=== PATIENT | male | born 1955 | race Asian ===

== ENCOUNTER 2017-05-10 19:17 | Emergency (ER) | payer MEDICAID ==
[2017-05-10 21:49] LABS: BASOPHILS % (AUTO) 0.4 %; EOSINOPHILS # (AUTO) 0.1 10^3/uL (0.0-0.7); EOSINOPHILS % (AUTO) 1.7 %; HGB - HEMOGLOBIN 15.3 g/dL (14.0-18.0); LYMPHOCYTES # (AUTO) 1.9 10^3/uL (1.5-3.5); LYMPHOCYTES % (AUTO) 24.6 %; MEAN CORPUSCULAR HEMOGLOBIN 30.3 pg (27.0-31.0); MEAN CORPUSCULAR HGB CONC 33.3 g/dL (32.0-36.0); MEAN CORPUSCULAR VOLUME 90.8 fL (80.0-94.0); MEAN PLATELET VOLUME 8.7 fL (7.4-11.4); MONOCYTES # (AUTO) 0.7 10^3/uL (0.0-1.0); MONOCYTES % (AUTO) 8.6 %; NEUTROPHILS # (AUTO) 5.1 10^3/uL (1.5-6.6); NEUTROPHILS % (AUTO) 64.7 %; NUCLEATED RED BLOOD CELLS AUTO 0.1 /100WBC; RED BLOOD COUNT 5.07 10^6/uL (4.70-6.10); RED CELL DISTRIBUTION WIDTH 12.9 % (12.0-15.0); UNCORRECTED WHITE BLOOD COUNT 7.8 x10^3/uL; WHITE BLOOD COUNT 7.8 x10^3/uL (4.8-10.8)
--- NOTE | 2017-05-10 21:51 | CT Preliminary Report ---
Exam: CT Head W/O IMPRESSION: Generalized age-related cortical atrophic changes without evidence of acute intracranial abnormality. [facility] SITE ID: [id number]
[2017-05-10] MEDS ORDERED: diphenhydrAMINE 25 MG CAPSULE PO STA (21:55)
[2017-05-10] MEDS ORDERED: KETOROLAC 60 MG/2 ML VIAL IM STA (21:55)
[2017-05-10] MEDS ORDERED: DEXAMETHASONE 10 MG/ML VIAL PO STA (21:55)
--- NOTE | 2017-05-10 21:55 | CT Report ---
EXAM: CT HEAD EXAM DATE: 05/10/2017 09:35 PM. CLINICAL HISTORY: Intermittent sharp left posterior headaches for the last 4 days. Episode of facial, left-sided head and numbness and decreased vision earlier tonight. COMPARISON: None. TECHNIQUE: Multiaxial CT images were obtained from the foramen magnum to the vertex. IV contrast: Non e. Reformats: Coronal. In accordance with CT protocol optimization, one or more of the following dose reduction techniques w ere utilized for this exam: automated exposure control, adjustment of mA and/or KV based on patient s ize, or use of iterative reconstructive technique. FINDINGS: Parenchyma: No intraparenchymal hemorrhage. No evidence of mass, midline shift, or CT findings of acu te infarction. Batres-white differentiation is distinct. Extraaxial Spaces: Mild atrophy, normal for age. No subdural or epidural collections identified. Ventricles: The ventricles and cortical sulci are enlarged, consistent with age-related tissue loss. Sinuses: Imaged paranasal sinuses, orbits, and mastoids show no significant abnormality. Bones: No evidence of fracture or calvarial defect. Other: Diffuse chronic microangiopathic white matter changes are evident. IMPRESSION: Generalized age-related cortical atrophic changes without evidence of acute intracranial abnormality. [facility] Referring Provider Line: [phone] SITE ID: [id number]
[2017-05-10] MEDS ORDERED: diphenhydrAMINE 25 MG CAPSULE PO ONE (22:03)
[2017-05-10] MEDS ORDERED: KETOROLAC 60 MG/2 ML VIAL ONE (22:03)
[2017-05-10] MEDS ORDERED: DEXAMETHASONE 10 MG/ML VIAL ONE (22:03)
[2017-05-10 22:05] LABS: ALBUMIN/GLOBULIN RATIO 1.3 (1.0-2.2); BILIRUBIN,TOTAL 0.7 mg/dL (0.2-1.0); BUN - BLOOD UREA NITROGEN 16 mg/dL (6-20); CARBON DIOXIDE - CO2 25 mmol/L (21-32); CHLORIDE 108 mmol/L (101-111); CREATININE 0.9 mg/dL (0.6-1.2); GFR - MDRD 86 (>89); GLUCOSE 104 mg/dL (70-100); LIPASE 43 U/L (22-51); POTASSIUM 3.9 mmol/L (3.5-5.0); SODIUM 140 mmol/L (135-145); TOTAL PROTEIN 6.8 g/dL (6.7-8.2)
--- NOTE | 2017-05-10 22:17 | ED Physician Documentation ---
PD HPI HEADACHE - Stated complaint Stated Complaint: HEAD PX - Chief complaint Chief Complaint: General - History obtained from History obtained from: Patient - History of Present Illness Timing - onset: How many days ago (4) Timing - onset during: Rest Timing - details: Gradual onset, Intermittant, Waxing and waning Pain level max: 4 Pain level now: 3 Worst headache ever?: Worst headache ever? (no) Location: Left Quality: Aching, Stabbing Associated symptoms: Eye pain. No: Fever, Stiff neck, Nausea, Vomiting, Weakness, Numbness, Syncope, Seizure Improved by: Nothing Contributing factors: No: Anticoagulated, Possible carbon monoxide, Hypertension Similar symptoms before: Has not had sx before Recently seen: Not recently seen - Additional information Additional information: Patient is a 61 year old male with a history of anxiety who is presenting to the emergency department for headache. patient states that his pain has been going on for the last 4 days. patient states that it comes and goes. He states that it feels painful and then feels numb in that area. patient denies any aggravating or alleviating factors. Patient denies any nausea, vomiting, fever, chills or change in vision. Review of Systems Constitutional: denies: Fever, Chills Eyes: reports: Photophobia. denies: Loss of vision, Decreased vision, Discharge Ears: denies: Ear pain, Drainage/discharge Nose: denies: Rhinorrhea / runny nose, Congestion, Epistaxis Throat: denies: Sore throat Respiratory: denies: Dyspnea, Cough, Wheezing GI: denies: Nausea, Vomiting : denies: Dysuria, Frequency Skin: denies: Rash, Lesions Musculoskeletal: denies: Neck pain, Back pain, Extremity pain, Joint pain Neurologic: reports: Numbness, Headache. denies: Generalized weakness, Focal weakness, Difficulty speaking, Near syncope, Syncope, Confused, Altered mental status, Head injury, LOC Psychiatric: reports: Anxiety Immunocompromised: denies: Immunocompromised PD PAST MEDICAL HISTORY - Past Medical History Past Medical History: Yes Cardiovascular: High cholesterol - Past Surgical History Past Surgical History: No - Present Medications Home Medications: Ambulatory Orders Medication Instructions Recorded Confirmed Simvastatin 20 mg PO DAILY 04/05/16 05/10/17 Citalopram [CeleXA] 20 mg PO DAILY 05/10/17 05/10/17 - Allergies Allergies/Adverse Reactions: Allergies Allergy/AdvReac Type Severity Reaction Status Date / Time No Known Drug Allergies Allergy Verified 04/05/16 19:11 - Social History Does the pt smoke?: No Smoking Status: Never smoker PD ED PE NORMAL - Vitals Vital signs reviewed: Yes - General General: Alert and oriented X 3, No acute distress, Well developed/nourished - HEENT HEENT: Atraumatic, PERRL, Moist mucous membranes, Pharynx benign - Neck Neck: Supple, no meningeal sign - Cardiac Cardiac: RRR, No murmur - Respiratory Respiratory: No respiratory distress, Clear bilaterally - Abdomen Abdomen: Soft, Non tender, Non distended - Derm Derm: Normal color, Warm and dry, No rash - Extremities Extremities: No deformity, No tenderness to palpate, No edema - Neuro Neuro: Alert and oriented X 3, 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, No motor deficit, No sensory deficit, Normal speech - Psych Psych: Normal mood PD ED PE EXPANDED - Psych Psych: Anxious Results - Vitals Vitals: Vital Signs - 24 hr 05/10/17 19:36 Temperature 36.4 C L Heart Rate 86 Respiratory 14 Rate Blood Pressure 150/93 H O2 Saturation 96 Oxygen O2 Source Room air - Labs Labs: Laboratory Tests 05/10/17 05/10/17 05/10/17 21:30 21:30 21:30 WBC 7.8 RBC 5.07 Hgb 15.3 Hct 46.0 MCV 90.8 MCH 30.3 MCHC 33.3 RDW 12.9 Plt Count 194 MPV 8.7 Neut # 5.1 Lymph # 1.9 [place] # 0.7 Eos # 0.1 Baso # 0.0 Absolute Nucleated RBC 0.00 Nucleated RBCs 0.1 ESR 2 Sodium 140 Potassium 3.9 Chloride 108 Carbon Dioxide 25 Anion Gap 7.0 BUN 16 Creatinine 0.9 Estimated GFR (MDRD) 86 L Glucose 104 H Calcium 9.0 Total Bilirubin 0.7 AST 24 ALT 26 Alkaline Phosphatase 48 Total Protein 6.8 Albumin 3.9 Globulin 2.9 Albumin/Globulin Ratio 1.3 Lipase 43 - Rads (name of study) ct head Radiology: Final report received, See rad report (no acute intracranial pathology) PD MEDICAL DECISION MAKING - ED course Complexity details: reviewed old records, reviewed results, re-evaluated patient , considered differential, d/w patient ED course: Patient was seen and examined at bedside. labs were drawn and imaging was ordered due to the neurological complaints. Patient's labs and imaging was within normal limits. patient had no neurological deficits. patient was treated with toradol, decadron and benadryl. patient required no further work up and was stable for discharge with outpatient follow up. Departure - Departure Disposition: Home, Self Care Clinical Impression: Headache Condition: Good Instructions: ED Cephalgia Unspecified Follow-Up: primary,care provider [Other] - Within 3 Days Comments: Your diagnostics today were within normal limits. there were no acute abnormalities on you ct or blood work. there are over 100 different types of headaches and it is hard to say what is causing it exactly. You should try starting with motrin and tylenol and staying well hydrated. You should follow up with your doctor on saturday to schedule a follow up appointment. You can return to the emergency department at any time for new, worsening or uncontrollable symptoms.
[2017-05-10 22:38] VITALS: BP 149/100
== END 2017-05-10 22:36 | disposition home or self-care (01) ==
LOC: ED 19:17
DX: R51 Headache (principal); E78.00 Pure hypercholesterolemia, unspecified
CPT/HCPCS: 36415; 70450; 80053; 83690; 85025; 85651; 86140; 96372; 99282; 99284; A9270

== ENCOUNTER 2018-05-30 09:29 | Outpatient (CLI) | payer MEDICAID | END 2018-05-30 23:59 | disposition home or self-care (01) | LOC: RT 09:29 | PROVIDERS: ATTEND Internal Medicine Gastroenterology | DX: E78.5 Hyperlipidemia, unspecified (principal) | CPT/HCPCS: 93005 ==

== ENCOUNTER 2018-06-05 06:11 | Day surgery (SDC) | payer MEDICAID ==
[2018-06-05] MEDS ORDERED: LACTATED RINGERS 1,000 ML IV ONE (06:34)
--- NOTE | 2018-06-05 07:44 | ANESTHESIA ---
Pre-Anesthesia VS, & Labs - Diagnosis Family history of colon cancer - Procedure Colonoscopy Vital Signs: Temp Pulse Resp BP Pulse Ox 36.1 C L 86 16 137/103 H 96 06/05/18 06:35 06/05/18 06:35 06/05/18 06:35 06/05/18 06:35 06/05/18 06:35 Height 5 ft 7 in Weight (kg) 93.4 kg Body Mass Index 31.3 - NPO >8 hours Last Fluid Intake: h20 at 0500 Home Medications and Allergies Home Medications: Ambulatory Orders Medication Instructions Recorded Confirmed Simvastatin 20 mg PO DAILY 04/05/16 06/05/18 Amoxicillin 500 mg PO TID 06/05/18 06/05/18 Oxycodone HCl/Acetaminophen 1 each PO TID 06/05/18 06/05/18 [Oxycodone-Acetaminophen 5-325] Simvastatin 20 mg PO DAILY 04/05/16 Amoxicillin 500 mg PO TID 06/05/18 Oxycodone HCl/Acetaminophen [Oxycodone-Acetaminophen 5-325] 1 each PO TID 06/05/18 Allergies/Adverse Reactions: Allergies Allergy/AdvReac Type Severity Reaction Status Date / Time No Known Drug Allergies Allergy Verified 04/05/16 19:11 Anes History & Medical History - Anesthetic History Anesthesia Complications: reports: No previous complications - Medical History Cardiovascular: reports: High cholesterol Pulmonary: reports: Sleep apnea, CPAP use Gastrointestinal: reports: None Urinary: reports: None Neuro: reports: None Musculoskeletal: reports: None Endocrine/Autoimmune: reports: None Skin: reports: None Smoking Status: Former smoker (quit 13 years ago) Psychosocial: reports: No issues indicated - Surgical History General: Colonoscopy Exam General: Alert, Oriented x3, Cooperative, No acute distress Dental: WNL Mouth Openin Fingerbreadth Mallampati classification: II Thyromental Distance: 4-6 cm Respiratory: Lungs clear, Normal breath sounds, No respiratory distress, No accessory muscle use Cardiovascular: Regular rate, Normal S1, Normal S2, No murmurs Mental/Cognitive Status: Alert/Oriented X3, Normal for patient Cognitive Status: Within normal limits Plan Anesthesia Type: MAC Consent for Procedure(s) Verified and Reviewed: Yes Code Status: Attempt Resuscitation ASA classification: 2-Mild systemic disease Is this case an emergency?: No
[2018-06-05] MEDS ORDERED: PROPOFOL 200 MG/20 ML VIAL IVP ONE (08:44)
[2018-06-05] MEDS ORDERED: LIDOCAINE-MPF 2% 5 ML VIAL IM ONE (08:44)
[2018-06-05 09:38] VITALS: BP 126/84
== END 2018-06-05 06:12 | disposition home or self-care (01) ==
LOC: SDS 06:11
PROVIDERS: ATTEND Internal Medicine Gastroenterology
PROC: 0DBH8ZZ Excision of Cecum, Via Natural or Artificial Opening Endoscopic (ICD-10-PCS; 2018-06-05)
PROC: 0DBK8ZZ Excision of Ascending Colon, Via Natural or Artificial Opening Endoscopic (ICD-10-PCS; principal; 2018-06-05 08:15)
DX: Z12.11 Encounter for screening for malignant neoplasm of colon (principal); D12.2 Benign neoplasm of ascending colon; D12.0 Benign neoplasm of cecum; K57.30 Diverticulosis of large intestine without perforation or abscess without bleeding; G47.30 Sleep apnea, unspecified; E78.5 Hyperlipidemia, unspecified; Z87.891 Personal history of nicotine dependence; Z80.0 Family history of malignant neoplasm of digestive organs; E66.9 Obesity, unspecified; Z68.32 Body mass index [BMI] 32.0-32.9, adult
CPT/HCPCS: 45380; J7120

== ENCOUNTER 2018-06-06 20:04 | Emergency (ER) | payer MEDICAID ==
--- NOTE | 2018-06-06 21:41 | ED Physician Documentation ---
PD HPI UPPER EXT INJURY - Stated complaint Stated Complaint: L INDEX FINGER LAC - Chief complaint Chief Complaint: Trauma Ext - History obtained from History obtained from: Patient - History of Present Illness Location: Left, Finger (index finger tip, not at nailbed. 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.) Type of injury: Laceration Timing - onset: Today Timing - details: Abrupt onset, Still present Improved by: Rest Worsened by: Moving, Palpating Associated symptoms: No: Weakness, Numbness Similar symptoms before: Has not had sx before Recently seen: Not recently seen Review of Systems Skin: reports: Laceration (s) Neurologic: denies: Focal weakness PD PAST MEDICAL HISTORY - Past Medical History Past Medical History: Yes Cardiovascular: High cholesterol Respiratory: None Neuro: None Endocrine/Autoimmune: None GI: None : None HEENT: None Psych: None Musculoskeletal: None Derm: None - Past Surgical History Past Surgical History: No - Present Medications Home Medications: Ambulatory Orders Medication Instructions Recorded Confirmed Simvastatin 20 mg PO DAILY 04/05/16 06/05/18 Amoxicillin 500 mg PO TID 06/05/18 06/05/18 Oxycodone HCl/Acetaminophen 1 each PO TID 06/05/18 06/05/18 [Oxycodone-Acetaminophen 5-325] - Allergies Allergies/Adverse Reactions: Allergies Allergy/AdvReac Type Severity Reaction Status Date / Time No Known Drug Allergies Allergy Verified 06/06/18 20:11 - Social History Does the pt smoke?: No Smoking Status: Never smoker Does the pt drink ETOH?: No Does the pt have substance abuse?: No - Immunizations Immunizations are current?: No - POLST Patient has POLST: No PD ED PE NORMAL - Vitals Vital signs reviewed: Yes - General General: Alert and oriented X 3, No acute distress, Well developed/nourished - Derm Derm: Normal color, Warm and dry - Extremities Extremities: Other (left index finger tip, not at nailbed, but just distal to it, with flap lac, and attached small side of it is proximal radial side. Color of flap is slightly dark and not capillary refill briskly, but is bleeding from the underside base. No bone exposure. Nailbed not disrupted. ) - Neuro Neuro: No motor deficit, Other (less sensation at just the flap. ) Results - Vitals Vitals: Oxygen O2 Source Room air Procedures - Laceration (location) left index finger tip Length in cm: 1.5 Wound type: Flap, Into subcut fat (the center part of it is full thickness, and there appears a thin area still connected at the proximal aspect, with dusky but still some blood flow appearance into the flp.), Clean Neurovascular status: Motor intact, Vascular intact (diminshed due to small flap). No: Sensory intact (around it is good. The flap itself has less sensation.) Tendon involvement: No: Tendon Injury Anesthesia: Lidocaine 1% (local) Wound Preparation: Hibiclens, Irrigated copiously NS Skin layer closure: Nylon, Interrupted, Size #-0 - enter number (4) Other: Patient tolerated well, No complications, Neurovascular intact, Dressing applied, Tetanus UTD Complexity: Simple PD MEDICAL DECISION MAKING - ED course Complexity details: considered differential (index finger tip flap lac. Talked with him about smaller pieces sometimes are too thin or such. He would like to try suture closure. ), d/w patient - Sepsis Event Vital Signs: Oxygen O2 Source Room air Departure - Departure Disposition: 01 Home, Self Care Clinical Impression: Finger laceration Qualifiers: Encounter type: initial encounter Finger: index finger Damage to nail status: without damage Foreign body presence: without foreign body Laterality: left Qualified Code(s): S61.211A - Laceration without foreign body of left index finger without damage to nail, initial encounter Condition: Stable Record reviewed to determine appropriate education?: Yes Instructions: ED Laceration Hand Comments: It is okay to wash and shower. Clean off the wound twice a day with soap and water, or peroxide and water. Apply some antibiotic ointment to it to keep it moist. Also to watch for signs of infection such as purulence, redness or increasing pain. Return to your primary care or the ER at the specified time for suture removal. Suture removal 10 days. Tylenol or ibuprofen if needed for pains. This is a thin flap which may not heal back in place. Stitching it right now is the best opportunity for her to heal. The tissue underneath will be healing anyway and if the top piece doesn't heal in, the new tissue underneath should still cover most of the area. Discharge Date/Time: 06/06/18 22:58
[2018-06-06] MEDS ORDERED: LIDOCAINE 1% 2 ML VIAL SUBQ STA (21:57)
[2018-06-06] MEDS ORDERED: ACETAMINOPHEN 325 MG TABLET PO STA (22:32)
[2018-06-06] MEDS ORDERED: IBUPROFEN 600 MG TABLET PO STA (22:32)
[2018-06-06 22:54] VITALS: BP 160/90
== END 2018-06-06 22:58 | disposition home or self-care (01) ==
LOC: ED 20:04
DX: S61.211A Laceration without foreign body of left index finger without damage to nail, initial encounter (principal); W27.8XXA Contact with other nonpowered hand tool, initial encounter
CPT/HCPCS: 12001; 99282; 99283; A9270

== ENCOUNTER 2018-07-21 09:21 | Outpatient (CLI) | payer MEDICAID | END 2018-07-21 09:22 | disposition home or self-care (01) | LOC: SC 09:21 | PROVIDERS: ATTEND Internal Medicine Pulmonary Disease | DX: G47.33 Obstructive sleep apnea (adult) (pediatric) (principal) | CPT/HCPCS: 99212; 99213 ==

== ENCOUNTER 2019-05-12 13:19 | Outpatient (CLI) | payer MEDICAID ==
--- NOTE | 2019-05-12 20:50 | SLEEP CARE CONSULTATION ---
Information from patient questionnaire entered by hSanell Bucio. I have reviewed and concur with the information entered by Shanell Bucio. This document represents the service I personally performed and the decisions made by me, David Molina MD, [facility]. History of Present Illness Previous diagnosis: Very Severe, Obstructive Sleep Apnea-Hypopnea Syndrome AHI: 95.5 Reason for CPAP/BiPAP follow up: other (10 month FOLLOWUP ISSUES WITH [facility]) Equipment type: CPAP Equipment obtained from: [employer] Prior sleep studies: Yes Year and Where: 2007 [facility] additional information: HPI: Mr. Canchola returned today for follow up of nasal CPAP therapy. He was diagnosed to have very severe obstructive sleep apnea-hypopnea syndrome. The patient wears a Respironics DreamWear nasal cushion mask. He reports using the device nightly and all through the night. The compliance report is not available because he did not bring the memory card. He complained of no particular problem with the device such as soreness on the face, dry nose, epistaxis, nasal congestion or headache. He thinks that the pressure of 9 - 15 cmH2O is comfortable (raised from 8 13 cmH2O for elevated residual AHI of 8). On the CPAP therapy he notices improvement in his sleep quality, and that he wakes up feeling fresher in the morning and more awake/alert during the day. Subjective Initial [place] Sleepiness Scale score: 19 Current Mcgrew Sleepiness Scale score: 0 Allergies and Home Medications Drug allergies reviewed: Yes Home medication list reviewed: Yes Review of Systems Review of systems same as previous: Yes Physical Exam Weight (kg): 216 lb Impression and Plan IMPRESSION: 1. Obstructive Sleep Apnea-Hypopnea Syndrome, very severe, with the patient doing well on nasal CPAP therapy. He has excellent compliance and significant clinical improvement. The effectiveness is unknown because he did not bring the memory card. Because the CPAP is now older than the useful life of 5 years, I will order the patient a new one and make it an autoCPAP set between 10 and 15 cmH2O. PLAN: 1. Prescription made for an autoCPAP, heated humidifier, and related supplies. He will get the device from a different durable medical supplier because he is unhappy with [facility]. 2. Try to lose weight 3. Try ResMed N30i mask. 4. Return for follow up after one month on the new machine. I spent 100% of this 15 minute visit face to face with the patient with greater than 50% of this was spent time counseling the patient and coordination of care.
== END 2019-05-12 13:20 | disposition home or self-care (01) ==
LOC: SC 13:19
PROVIDERS: ATTEND Internal Medicine Pulmonary Disease
DX: G47.33 Obstructive sleep apnea (adult) (pediatric) (principal)
CPT/HCPCS: 99212; 99213

== ENCOUNTER 2019-07-08 08:00 | Outpatient (CLI) | payer MEDICAID ==
--- NOTE | 2019-07-08 15:49 | XRAY Report ---
Reason: HEMOPTYSIS Procedure Date: 07/08/2019 Accession Number: [id number] / [id number] Procedure: WCP - Chest 2 View X-Ray CPT Code: 26170 FULL RESULT: EXAM: CHEST RADIOGRAPHY EXAM DATE: 07/08/2019 09:09 AM. CLINICAL HISTORY: HEMOPTYSIS. COMPARISON: None. TECHNIQUE: 2 views. FINDINGS: Lungs/Pleura: No focal opacities evident. No pleural effusion. No pneumothorax. Normal volumes. Mediastinum: Heart and mediastinal contours are unremarkable. Other: None. IMPRESSION: No acute cardiopulmonary abnormality. [facility]
== END 2019-07-08 23:59 | disposition home or self-care (01) ==
LOC: DI.WCP 08:00
PROVIDERS: ATTEND Family Medicine
DX: R04.2 Hemoptysis (principal)
CPT/HCPCS: 71046

== ENCOUNTER 2019-07-10 09:36 | Outpatient (CLI) | payer MEDICAID ==
--- NOTE | 2019-07-10 15:55 | CT Report ---
Reason: HEMOPTYSIS, NICOTINE ADDICTION Procedure Date: 07/10/2019 Accession Number: [id number] / [id number] Procedure: CT - CHEST WO CPT Code: Final Report FULL RESULT: EXAM: CT CHEST EXAM DATE: 07/10/2019 09:53 AM. CLINICAL HISTORY: HEMOPTYSIS, NICOTINE ADDICTION. COMPARISONS: None. TECHNIQUE: Routine helical CT imaging was performed through the chest. IV contrast: None. Reconstructions: Coronal and sagittal. In accordance with CT protocol optimization, one or more of the following dose reduction techniques were utilized for this exam: automated exposure control, adjustment of mA and/or KV based on patient size, or use of iterative reconstructive technique. FINDINGS: Lungs/Pleura: There is no consolidation or effusion. There is a 0.2 cm pulmonary nodule within the right middle lobe (image 50 series 6). No other suspicious noncalcified nodules are seen. There is no evidence of subpleural reticulation or architectural distortion. No central airway abnormalities. No pneumothorax. Mediastinum: There is mild aneurysm dilatation of the ascending thoracic aorta. It measures 4.2 cm in AP diameter. Heart size is within normal limits. There are coronary artery calcifications. There are no enlarged axillary, supraclavicular, mediastinal, or hilar lymph nodes. Bones: Unremarkable. Visualized Abdomen: Unremarkable. Other: None. IMPRESSION: 1. No acute pulmonary CT process. 2. There is a 0.2 cm pulmonary nodule within the right middle lobe. This is probably inflammatory. No other focal nodules are seen. 3. Heart size is within normal limits. 4. No enlarged thoracic lymph nodes. 5. There is mild aneurysmal dilatation of the ascending thoracic aorta. [facility]
== END 2019-07-10 09:37 | disposition home or self-care (01) ==
LOC: DI 09:36
PROVIDERS: ATTEND Family Medicine
DX: R91.1 Solitary pulmonary nodule (principal); I77.810 Thoracic aortic ectasia; F17.201 Nicotine dependence, unspecified, in remission
CPT/HCPCS: 71250

== ENCOUNTER 2019-09-22 13:47 | Outpatient (CLI) | payer MEDICAID ==
--- NOTE | 2019-09-22 14:31 | SLEEP CARE CONSULTATION ---
Information from patient questionnaire entered by Shanell Bucio. I have reviewed and concur with the information entered by Shanell Bucio. This document represents the service I personally performed and the decisions made by me, David Molina MD, [facility]. History of Present Illness Previous diagnosis: Very Severe, Obstructive Sleep Apnea-Hypopnea Syndrome AHI: 95.5 Reason for follow up: first compliance Equipment type: CPAP Equipment obtained from: [employer] Mask style: Nasal Prior sleep studies: Yes HPI additional information: HPI: Mr. Canchola returned today for follow up of nasal CPAP therapy. He was diagnosed to have very severe obstructive sleep apnea-hypopnea syndrome. The patient wears a nasal mask. He reports using the device nightly and all through the night. The compliance report shows usage in 60 nights out of the past 60 nights, averaging 7.4 hours a night. The > 4 hour compliance rate for the past 60 days is 90%. He complained of no particular problem with the device such as soreness on the face, dry nose, epistaxis, nasal congestion or headache. He thinks that the pressure of 10 16 cmH2O is comfortable. On the CPAP therapy he notices improvement in his sleep quality, and that he wakes up feeling fresher in the morning and more awake/alert during the day. His notices no snore at all. The average residual AHI is 0.7; and average time in large leak per day is 16 minutes. The 90th percentile pressure is 11.4 cmH2O. CPAP Compliance Data - Data Reviewed with Patient Average duration of nightly device use: 7H 23M Compliance rate %: 90 Current pressure setting (cmH2O): 10-16 Humidity settin Heated hose settin Average residual AHI: 0.7 Average large leak: 16m 18s Subjective Initial [place] Sleepiness Scale score: 19 Current [place] Sleepiness Scale score: 18 Allergies and Home Medications Drug allergies reviewed: Yes Home medication list reviewed: Yes Allergy and home medication list: Current Medications: simvastatin, oxycodone, amoxicillin Allergies: no known drug allergies Review of Systems Review of systems same as previous: Yes Physical Exam Weight: 205 lb Impression and Plan IMPRESSION: 1. Obstructive Sleep Apnea-Hypopnea Syndrome, very severe, with the patient doing well on nasal CPAP therapy. He continues to have excellent compliance and significant clinical improvement. The current pressure appears effective and comfortable. His mask fits well. Overall, he is very satisfied with treatment and plans to continue with it long-term. Because the residual AHI is very low and the patient complains of noise coming from the machine and mask, I will lower the pressure range to 8 14 cmH2O. PLAN: 1. Lower autoCPAP to 8 - 14 cmH2O. Lower C-Flex from 3 to 1. 2. Try to lose weight 3. Try ResMed N30i mask and a total face (he likes the latter when he used it several years ago). 4. Return in one year for follow up or earlier if there is any problem with the treatment. I spent 100% of this visit face to face with the patient with greater than 50% of this was spent time counseling the patient and coordination of care.
== END 2019-09-22 13:48 | disposition home or self-care (01) ==
LOC: SC 13:47
PROVIDERS: ATTEND Internal Medicine Pulmonary Disease
DX: G47.33 Obstructive sleep apnea (adult) (pediatric) (principal)
CPT/HCPCS: 99212; 99213

== ENCOUNTER 2020-11-09 08:00 | Outpatient (CLI) | payer MEDICAID ==
[2020-11-09 18:14] LABS: BASOPHILS % (AUTO) 0.3 %; EOSINOPHILS # (AUTO) 0.1 10^3/uL (0.0-0.7); EOSINOPHILS % (AUTO) 1.6 %; HCT - HEMATOCRIT 47.2 % (42.0-52.0); HGB - HEMOGLOBIN 15.2 g/dL (14.0-18.0); LYMPHOCYTES # (AUTO) 1.5 10^3/uL (1.5-3.5); LYMPHOCYTES % (AUTO) 18.5 %; MEAN CORPUSCULAR HEMOGLOBIN 29.9 pg (27.0-31.0); MEAN CORPUSCULAR HGB CONC 32.2 g/dL (32.0-36.0); MEAN CORPUSCULAR VOLUME 92.7 fL (80.0-94.0); MEAN PLATELET VOLUME 11.4 fL (7.4-11.4); MONOCYTES # (AUTO) 0.6 10^3/uL (0.0-1.0); MONOCYTES % (AUTO) 8.1 %; NEUTROPHILS # (AUTO) 5.6 10^3/uL (1.5-6.6); NEUTROPHILS % (AUTO) 70.7 %; PLT - PLATELET COUNT 244 10^3/uL (130-450); RED BLOOD COUNT 5.09 10^6/uL (4.70-6.10); RED CELL DISTRIBUTION WIDTH 12.4 % (12.0-15.0); WHITE BLOOD COUNT 7.9 x10^3/uL (4.8-10.8)
[2020-11-09 18:38] LABS: ALBUMIN/GLOBULIN RATIO 1.1 (1.0-2.2); ALKALINE PHOSPHATASE 44 IU/L (42-121); ALT ALANINE AMINOTRANSFERASE 27 IU/L (10-60); AST ASPARTATE AMINOTRANSFERASE 25 IU/L (10-42); BILIRUBIN,TOTAL 0.6 mg/dL (0.2-1.0); BUN - BLOOD UREA NITROGEN 17 mg/dL (6-20); CALCIUM 9.2 mg/dL (8.5-10.3); CARBON DIOXIDE - CO2 27 mmol/L (21-32); CHLORIDE 105 mmol/L (101-111); CHOL/HDL RATIO 3.7 (<5.0); CHOLESTEROL 195 mg/dL; CREATININE 0.9 mg/dL (0.6-1.2); GFR - MDRD 85 (>89); GLUCOSE 112 mg/dL (70-100); HDL CHOLESTEROL 53 mg/dL; LDL CHOLESTEROL,CALCULATED 120 mg/dL; LDL/HDL RATIO 2.3 (<3.6); POTASSIUM 3.6 mmol/L (3.5-5.0); SODIUM 138 mmol/L (135-145); TOTAL PROTEIN 7.5 g/dL (6.7-8.2); TRIGLYCERIDES 111 mg/dL; VLDL CHOLESTEROL 22 mg/dL
== END 2020-11-09 23:59 | disposition home or self-care (01) ==
LOC: LAB.WCP 08:00
PROVIDERS: ATTEND Family Medicine
DX: I10 Essential (primary) hypertension (principal); E78.5 Hyperlipidemia, unspecified; Z12.5 Encounter for screening for malignant neoplasm of prostate
CPT/HCPCS: 36415; 80053; 80061; 83721; 84153; 85025

== ENCOUNTER 2021-09-19 08:41 | Day surgery (SDC) | payer MEDICAID ==
[2021-09-19] MEDS ORDERED: LACTATED RINGERS 1,000 ML IV ONE ×2 (09:01→10:35)
[2021-09-19] MEDS ORDERED: PROPOFOL 500 MG/50 ML 500 MG/50 ML VIAL ONE (09:29)
--- NOTE | 2021-09-19 09:32 | ANESTHESIA ---
Pre-Anesthesia VS, & Labs - Diagnosis screening - Procedure colonoscopy Vital Signs: Temp Pulse Resp BP Pulse Ox 36.2 C L 77 14 147/88 H 96 09/19/21 08:58 09/19/21 08:58 09/19/21 08:58 09/19/21 08:58 09/19/21 08:58 Height: 5 ft 7 in Weight (kg): 92 kg Body Mass Index: 31.7 BMI Classification: Obese - NPO >8 hours Home Medications and Allergies Simvastatin 20 mg PO DAILY 04/05/16 Lisinopril [Zestril] 10 mg PO DAILY 11/12/19 Allergies/Adverse Reactions: Allergies Allergy/AdvReac Type Severity Reaction Status Date / Time No Known Drug Allergies Allergy Verified 11/12/19 19:14 Anes History & Medical History - Anesthetic History Anesthesia Complications: reports: No previous complications - Medical History Cardiovascular: reports: Hypertension, High cholesterol Pulmonary: reports: Sleep apnea, CPAP use Gastrointestinal: reports: None Urinary: reports: None Neuro: reports: None Musculoskeletal: reports: None Endocrine/Autoimmune: reports: None Blood Disorders: reports: None Skin: reports: None Smoking Status: Never smoker History of Cancer?: No Exam General: Alert, Oriented x3 Dental: WNL Mallampati classification: II Thyromental Distance: greater than 6 cm Respiratory: Lungs clear Cardiovascular: Regular rate Plan Anesthesia Type: Total IV Consent for Procedure(s) Verified and Reviewed: Yes Code Status: Attempt Resuscitation ASA classification: 2-Mild systemic disease Is this case an emergency?: No
[2021-09-19] MEDS ORDERED: MIDAZOLAM 2 MG/2 ML VIAL ONE (09:39)
[2021-09-19] MEDS ORDERED: LIDOCAINE-MPF 2% 5 ML VIAL ONE (10:27)
--- NOTE | 2021-09-19 10:52 | ANESTHESIA POST OP EVALUATION ---
Anesthesia Post Eval - Post Anesthesia Eval Vitals: Last Vital Signs Temp 36.8 C 09/19/21 10:45 Pulse 67 09/19/21 10:45 Resp 17 09/19/21 10:45 BP 107/68 09/19/21 10:45 Pulse Ox 97 09/19/21 10:45 CV Function Including HR & BP: Stable Pain Control: Satisfactory Nausea & Vomiting: Negative Mental Status: Baseline Respiratory Status: Airway Patent Hydration Status: Satisfactory Anesthesia Complications: None
[2021-09-19 11:21] VITALS: BP 124/82
== END 2021-09-19 08:42 | disposition home or self-care (01) ==
LOC: SDS 08:41
PROVIDERS: ATTEND Surgery
PROC: 0DBL8ZZ Excision of Transverse Colon, Via Natural or Artificial Opening Endoscopic (ICD-10-PCS; principal; 2021-09-19 10:00)
DX: Z12.11 Encounter for screening for malignant neoplasm of colon (principal); K63.5 Polyp of colon; K57.30 Diverticulosis of large intestine without perforation or abscess without bleeding; K64.8 Other hemorrhoids; K64.4 Residual hemorrhoidal skin tags; Z80.0 Family history of malignant neoplasm of digestive organs; E66.9 Obesity, unspecified; Z68.31 Body mass index [BMI] 31.0-31.9, adult; G47.30 Sleep apnea, unspecified; Z87.891 Personal history of nicotine dependence
CPT/HCPCS: 45380; J7120

== ENCOUNTER 2021-10-02 09:23 | Outpatient (CLI) | payer MEDICAID ==
[2021-10-02] MEDS ORDERED: iohexoL-300 100 ML VIAL ONE (10:02)
--- NOTE | 2021-10-02 14:16 | CT Report ---
PROCEDURE: ANGIO CHEST W/WO INDICATIONS: MILD AAA CONTRAST: IV CONTRAST: Isovue 300 ml: 80 PO CONTRAST: *NO PO CONTRAST TECHNIQUE: After the administration of intravenous contrast, 2 mm axial images were acquired from the pulmonary apices to the posterior costophrenic angles during the arterial phase. In addition, 1 mm lung kernel and 5 mm soft tissue kernel reconstructions were performed. 3-dimensional coronal oblique maximum int ensity projection (MIP) reformats, 8 mm axial MIP, and 5 mm coronal and sagittal MPR reformats were t hen performed through the thorax. For radiation dose reduction, the following was used: automated exp osure control, adjustment of mA and/or kV according to patient size. COMPARISON: Noncontrast chest CT dated 07/10/2019 FINDINGS: Image quality: Excellent. Pulmonary arteries: Pulmonary arteries are normal in size, and demonstrate no intraluminal filling d efects to suggest central pulmonary embolism. Aorta and its attachments: Ascending thoracic aorta is unchanged in size, aneurysmally dilated, measu ring 4.5 cm. Classic three-vessel arch anatomy. Great vessel origins are widely patent. Descending th oracic aorta and proximal abdominal aorta are normal in caliber. Patent celiac, SMA, and renal arteri es. Lungs and pleura: Lungs are clear. No pleural effusions or pneumothorax. Central and peripheral ai rways are patent. Mediastinum: Heart size is normal, without pericardial effusion. No mediastinal or hilar adenopathy . Thoracic aorta is normal in caliber and enhancement. Esophagus is normal in caliber, without hiat al hernia. However, the esophagus is air-filled, possibly indicating reflux. Bones and chest wall: No suspicious bony lesions. Ribs and thoracic spine appear intact throughout. No axillary or supraclavicular adenopathy. The thyroid is normal in size and there are no incident al findings. Abdomen: Visualized upper abdominal solid organs appear normal in the early arterial phase of enhanc ement. IMPRESSION: 1. Stable aneurysmally dilated ascending aorta, measuring 4.5 cm in diameter. 2. No evidence of acute pulmonary process. 3. No evidence acute pulmonary emboli. Comment: Of note, the ascending aorta previously was described as measuring 12.2 cm however, to my me asurements it was 4.5 cm. CLINICAL RECOMMENDATION STATEMENTS: In patients <35 years with an ITN detected on CT, MRI, or extrathyroidal ultrasound, the Committee re commends further evaluation with dedicated thyroid ultrasound if the nodule is "e1 cm and has no susp icious imaging features, and if the patient has normal life expectancy. In patients "e35 years with an ITN detected on CT, MRI, or extrathyroidal ultrasound, the Committee r ecommends further evaluation with dedicated thyroid ultrasound if the nodule is "e1.5 cm and has no s uspicious imaging features, and if the patient has normal life expectancy. (ACR, 2014) Reviewed by: Nicho Esparza MD on 10/02/2021 2:14 PM PST Approved by: Nicho Esparza MD on 10/02/2021 2:14 PM PST Station ID: [id number]
[2021-10-02] MEDS ORDERED: iohexoL-300 100 ML VIAL IVP ONE (18:32)
== END 2021-10-02 09:24 | disposition home or self-care (01) ==
LOC: DI 09:23
PROVIDERS: ATTEND Family Medicine
DX: I71.2 Thoracic aortic aneurysm, without rupture (principal)
CPT/HCPCS: 36415; 71275; 82565; Q9967

== ENCOUNTER 2021-12-18 13:14 | Outpatient (CLI) | payer MEDICAID ==
[2021-12-18 22:13] VITALS: BP 134/99
--- NOTE | 2021-12-18 22:13 | SLEEP CARE CONSULTATION ---
Information from patient questionnaire entered by Lisa Calvo MA. I have reviewed and concur with the information entered by Lisa Calvo MA. This document represents the service I personally performed and the decisions made by me, David Molina MD, [facility]. History of Present Illness Service Date and Time: 12/18/2021 1314 Previous diagnosis: Very Severe, Obstructive Sleep Apnea-Hypopnea Syndrome AHI: 95.5 Reason for follow up: annual (LAST SEEN , [facility], ) Equipment type: CPAP Mask style: Nasal Prior sleep studies: Yes Year and Where: 2007 [facility] SLEEP [facility] additional information: Mr. Canchola returned today for annual follow up of nasal CPAP therapy. He was diagnosed to have very severe obstructive sleep apnea-hypopnea syndrome. The patient wears a nasal mask. He reports using the device nightly and all through the night. The compliance report shows usage in 365 nights out of the past 365 nights, averaging 8 hours a night. The > 4 hour compliance rate for the past 60 days is 90%. He complained of no particular problem with the device such as soreness on the face, dry nose, epistaxis, nasal congestion or headache. He thinks that the pressure of 10 16 cmH2O is comfortable. On the CPAP therapy he notices improvement in his sleep quality, and that he wakes up feeling fresher in the morning and more awake/alert during the day. His notices no snore at all. The average residual AHI is 0.7; and average time in large leak per day is 16 minutes. The 90th percentile pressure is 11.4 cmH2O. He has not registered his DreamStation with [employer] yet. I gave him the website to register. Sleep Study - Results Prior sleep studies: Yes Year and Where: 2007 [facility] CPAP Compliance Data - Data Reviewed with Patient Average duration of nightly device use: 8 HOURS 29 MINUTES Compliance rate %: 100 Current pressure setting (cmH2O): 10-16 Humidity settin Heated hose settin Average residual AHI: 0.9 Average large leak: 28 SECONDS Subjective Initial [place] Sleepiness Scale score: 19 Current [place] Sleepiness Scale score: 10 (12/2021) Allergies and Home Medications Drug allergies reviewed: Yes Home medication list reviewed: Yes Allergy and home medication list: Allergies No Known Drug Allergies Allergy (Verified 11/12/19 19:14) Physical Exam Vital signs obtained and entered by: YOSHI CABRERA Blood Pressure: 134/99 (RESP 16, PULSE 61, LEFT,) Cuff size: wrist Heart Rate: 69 O2 Saturation: 96 (PAPER) Height: 5 ft 7 in Weight: 204 lb Body Mass Index: 31.9 BMI Classification: Obese Impression and Plan IMPRESSION: 1. Obstructive Sleep Apnea-Hypopnea Syndrome, very severe (AHI was 95.5 in 2007), with the patient doing well on nasal CPAP therapy. He continues to have excellent compliance and significant clinical improvement. The current pressure appears effective and comfortable. His mask fits well. Overall, he is very satisfied with treatment and plans to continue with it long-term. Because the residual AHI is very low I will lower the pressure to 8 - 12 cmH2O. PLAN: 1. Lower autoCPAP to 8 - 12 cmH2O via the modem 2. Prescription made for supplies from [facility] 3. Try ResMed N30i mask and Respironics DreamWear nasal cushion mask 4. Return in one year for follow up or earlier if there is any problem with the treatment. Prescriptions: Device supplies Follow up with Sleep Care in: 1 year Visit Type: In Office Time Spent with Patient (minutes): 15 Provider Statement: I spent 100% of the Face to Face Visit with the patient with greater than 50% spent counseling the patient and coordination of care.
== END 2021-12-18 13:15 | disposition home or self-care (01) ==
LOC: SC 13:14
PROVIDERS: ATTEND Internal Medicine Pulmonary Disease
DX: G47.33 Obstructive sleep apnea (adult) (pediatric) (principal); E66.9 Obesity, unspecified; Z68.31 Body mass index [BMI] 31.0-31.9, adult
CPT/HCPCS: 99212

== ENCOUNTER 2022-10-04 08:19 | Outpatient (CLI) | payer MEDICARE, MEDICAID ==
[2022-10-04] MEDS ORDERED: iohexoL-300 100 ML VIAL ONE (08:28)
[2022-10-04] MEDS ORDERED: iohexoL-300 100 ML VIAL IVP ONE (09:16)
--- NOTE | 2022-10-04 15:36 | XRAY Report ---
PROCEDURE: Hand 2 View BILAT INDICATIONS: HAND PAIN TECHNIQUE: 2 views of both hands COMPARISON: None FINDINGS: Bones: No acute fracture or dislocation visualized. Mild polyarticular degenerative changes of both h ands and wrists. Scattered periarticular lucencies also demonstrated indeterminate for subchondral cy stic change or erosions. For example degenerative changes at both first CMC joints, STT joints, and s cattered IP joints. Soft tissues: No suspicious soft tissue calcifications. 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 Reviewed by: José Miguel Khan MD on 10/04/2022 3:35 PM PST Approved by: José Miguel Khan MD on 10/04/2022 3:35 PM PST Station ID: [id number]
--- NOTE | 2022-10-04 16:07 | CT Report ---
PROCEDURE: CT ANGIO CHEST W/WO INDICATIONS: AORTIC ARCH ANEURYSM CONTRAST: 80 ml Omnipaque 300 TECHNIQUE: Noncontrast images of the chest obtained. After the administration of intravenous contrast, 2 mm axia l images were acquired from the pulmonary apices to the posterior costophrenic angles during the franchesca rial phase. In addition, 1 mm lung kernel and 5 mm soft tissue kernel reconstructions were performed. 3-dimensional coronal oblique maximum intensity projection (MIP) reformats, 8 mm axial MIP, and 5 mm coronal and sagittal MPR reformats were then performed through the thorax. For radiation dose reduct ion, the following was used: automated exposure control, adjustment of mA and/or kV according to jeremy ent size. COMPARISON: CT angiogram of the chest 10/02/2021 FINDINGS: Image quality: Adequate. Aorta: Similar ectasia of the ascending thoracic aorta measuring 4.4 cm measured at the level of the right pulmonary artery. No thoracic aortic dissection. Pulmonary arteries: No definite pulmonary embolism to the level of the segmental arteries. Lungs and pleura: No consolidation. No pleural effusions or pneumothorax. Mediastinum: No pericardial effusion. No mediastinal or hilar adenopathy. Bones and chest wall: Multilevel degenerative change of the visualized spine. No axillary or suprac lavicular adenopathy. Abdomen: Visualized upper abdominal solid organs appear unremarkable in the early arterial phase of enhancement. IMPRESSION: Similar ectasia of the ascending thoracic aorta measuring up to 4.4 cm. Reviewed by: José Miguel Khan MD on 10/04/2022 4:06 PM PST Approved by: José Miguel Khan MD on 10/04/2022 4:06 PM PST Station ID: [id number]
== END 2022-10-04 08:20 | disposition home or self-care (01) ==
LOC: DI 08:19
PROVIDERS: ATTEND Physician Assistant
DX: I77.810 Thoracic aortic ectasia (principal); M19.041 Primary osteoarthritis, right hand; M19.042 Primary osteoarthritis, left hand; M19.031 Primary osteoarthritis, right wrist; M19.032 Primary osteoarthritis, left wrist; M18.0 Bilateral primary osteoarthritis of first carpometacarpal joints
CPT/HCPCS: 36415; 71275; 73120; 82565; Q9967

== ENCOUNTER 2023-02-05 07:46 | Outpatient (CLI) | payer MEDICARE, MEDICAID ==
--- NOTE | 2023-02-05 08:21 | CARDIAC PROCEDURE NOTE ---
Stress Test Report Service Date: 02/05/23 Service Time: 08:00 Ordering Provider: Dianna Rodriguez PA-C Indication for Test: Assess chest discomfort. Significant Medical History: [place] is referred for evaluation of intermittent, tight, chest/epigastric discomfort, often associated with bilateral arm pain, that has occurred over the past few months. Upon inquiry about this discomfort he states that after breakfast he has a heartburn-like feeling that gets better after burping. Sometimes exertion triggers a similar discomfort, that is not usually associated with diaphoresis or marked shortness of breath. In both of these contexts the discomfort is relieved by a combination of burping and resting, with resolution typically in 5 to 10 minutes. 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 He rarely uses a Uzbek "antiacid" liquid medication with incremental improvement, but has been on any medication of this type on a regular basis. Cardiac Risk Factors: Positive for hypertension and hyperlipidemia, treated for about 10 years; family history notable for father dying of a heart attack at age 65 and 1 of 7 siblings (a brother) having a stent; he is being monitored for enlargement of his ascending aorta. He was a smoker but quit 18 years ago after 30 pack years, so attributable risk there is minor. He has no history of diabetes Type of Stress Test: ETT with Echocardiography Procedure: -Exercise Treadmill Test- After signing informed consent, the patient underwent rest echo imgaing and then performed treadmill exercise using a Hayder protocol. The patient exercised for 4 minutes 29 seconds and achieved a peak heart rate of 115 (74 percent predicted maximum heart rate for age), and an estimated workload of 6.4 METS. The test was terminated due to chest pain occurring before achieving target HR, of such severity that he could not continue exercise. Resting heart rate: 75 Peak heart rate: 115 Normal response to abbreviated exercise. Resting BP: 128/87 BP: 145/73 at peak exercise, increased to 158/73 at 3-5 minutes of recovery Abnormal BP response to exercise and recovery. Rhythm during exercise: Sinus rhythm throughout. Symptoms: He began to describe onset of typical chest discomfort late in stage I, initially mild but increasing rapidly in intensity in early stage II, with emergence of bilateral arm pain. Discomfort became so severe that he had to stop walking and he described the episodes as "the worst I have ever had". It was difficult for him to lie still to cooperate with echo imaging (that was conducted at a far from diagnostic heart rate). After sitting up and belching several times the chest discomfort and subsequently the arm discomfort completely resolved. SL nitroglycerin was administered as echo imaging was being performed, but after resolution of symptoms he did not feel that the nitroglycerin hastened his improvement. He commented that sometimes he belches even more, with or without chest discomfort. EKG at rest showed normal sinus rhythm and normal in all aspects. EKG at peak stress showed J-point depression with upsloping ST segments, NOT clearly meeting criteria for ischemia. In Recovery heart rate normally/rapidly returned to baseline level while blood pressure remained elevated (151/99 at 5:00). Echo imaging performed at rest and with stress will be reported separately. IYimi MD, was present throughout this treadmill stress study and supervised it in its entirety. Summary: 1) Markedly reduced exercise tolerance as evidenced by KUMAR of 37%. 2) Normal resting EKG. 3) Adequate level of exercise was not achieved on this treadmill stress test, due to occurrence of limiting symptoms 4) Abnormal BP response to exercise, likely due to premature test termination due to limiting symptoms. 5) No ischemic changes by EKG criteria were seen at peak stress. 6) Echo image interpretation reveals normal resting ventricular size, and systolic function, with mild concentric increase in wall thickness, a prominent septal knuckle and mild chordal KATERYNA without obstruction. With exercise there appeared to be hypokinesis of the mid inferior wall and inferoseptum. No significant valvular abnormality or elevation of estimated pulmonary artery systolic pressure seen on screening study. See separate report for more details. Conclusions and Recommendations: 1) Abnormal treadmill stress echocardiogram with recreation of patient's full symptom complex, prompting early termination of exercise at a subdiagnostic heart rate level. 2) Although the patient experienced "the worst episode of pain in my life" there was no clear evidence of ischemia by EKG, with suggestive of a limited area of inducible ischemia by echo. 3) The post-prandial occurrence of this discomfort and rather dramatic belching that was associated with obtaining relief suggest a GI origin to his symptoms. After study completion reached his referring provider (Ms Rodriguez) to discuss a plan for further diagnostics and treatment, including both formal GI and Cardiology evaluation.
== END 2023-02-05 07:47 | disposition home or self-care (01) ==
LOC: DI 07:46
PROVIDERS: ATTEND Physician Assistant
DX: R94.39 Abnormal result of other cardiovascular function study (principal); R07.89 Other chest pain; I10 Essential (primary) hypertension; E78.5 Hyperlipidemia, unspecified; Z82.49 Family history of ischemic heart disease and other diseases of the circulatory system; Z87.891 Personal history of nicotine dependence
CPT/HCPCS: 93350

== ENCOUNTER 2023-09-30 09:24 | Outpatient (CLI) | payer SELFPAY ==
--- NOTE | 2023-09-30 12:27 | SLEEP CARE CONSULTATION ---
Information from patient questionnaire entered by Adia Connolly. I have reviewed and concur with the information entered by Adia Connolly. This document represents the service I personally performed and the decisions made by me, David Molina MD, [facility]. History of Present Illness Service Date and Time: 09/30/2023923 Previous diagnosis: Very Severe, Obstructive Sleep Apnea-Hypopnea Syndrome AHI: 95.5 Reason for follow up: annual (LAST SEEN 12/2021) Equipment type: CPAP (CROWDER) Mask style: Nasal Prior sleep studies: Yes Year and Where: 2007 [facility] SLEEP [facility] HPI additional information: Mr. Canchola returned today for annual follow up of nasal CPAP therapy. Since I saw him 2 years ago, he had a s/p coronary artery bypass graft surgery. He was diagnosed to have very severe obstructive sleep apnea-hypopnea syndrome here 15 years ago. The patient wears a nasal mask. He reports using the Respironics DreamStation 1 nightly and all through the night even though the humidifier does not click shut. The compliance report shows usage in 356 nights out of the past 365 nights, averaging 8.53 hours a night. The > 4 hour compliance rate for the past 365 days is 98%. He complained of no particular problem with the device such as soreness on the face, dry nose, epistaxis, nasal congestion or headache. He thinks that the pressure of 8 - 12 cmH2O is comfortable (lowered from 10 16 cmH2O 2 years ago). On the CPAP therapy he notices improvement in his sleep quality, and that he wakes up feeling fresher in the morning and more awake/alert during the day. His [place] Sleepiness Scale score is is 6. His notices no snore at all. The average residual AHI is 2.3; and average time in large leak per day is 4 minutes. The 90th percentile pressure is 10.4 cmH2O. He has not been getting supplies from [employer] because since he went on Medicare, he had to pay for the supplies out of pocket. Sleep Study - Results Prior sleep studies: Yes Year and Where: 2007 [facility] CPAP Compliance Data - Data Reviewed with Patient Average duration of nightly device use: 8HRS 29MINS 28SECS Compliance rate %: 96.2 (09/26/22-09/25/23) Current pressure setting (cmH2O): 8-12 Average residual AHI: 2.3 Subjective Initial [place] Sleepiness Scale score: 19 Current [place] Sleepiness Scale score: 9 (09/10/23) Allergies and Home Medications Drug allergies reviewed: Yes Home medication list reviewed: Yes Allergy and home medication list: Allergies No Known Drug Allergies Allergy (Verified 09/26/23 16:30) Review of Systems Review of systems same as previous: Yes Physical Exam Vital signs obtained and entered by: ADIA Holt MA Blood Pressure: 133/84 (LEFT ARM) Cuff size: regular Heart Rate: 80 O2 Saturation: 98 Height: 5 ft 7 in Weight: 206 lb 12.8 oz Body Mass Index: 32.3 BMI Classification: Obese Impression and Plan IMPRESSION: 1. Obstructive Sleep Apnea-Hypopnea Syndrome, very severe (AHI was 95.5 in 2007), with the patient doing well on nasal CPAP therapy. He continues to have excellent compliance and significant clinical improvement. The current pressure appears effective and comfortable. His mask fits well. Overall, he is very satisfied with treatment and plans to continue with it long-term. Because he is now on Medicare, I will order him all new equipment. PLAN: 1. Leave autoCPAP to 8 - 12 cmH2O. 2. Prescription made for ResMed AirSense 11 and CPAP supplies through [employer]. 3. Return for follow up after one month of using the CPAP. Counseling Topics: Weight control Prescriptions: Auto CPAP, Device supplies Follow up with Sleep Care in: 1-2 months Follow up recommended for: Weight management Visit Type: In Office Time Spent with Patient (minutes): 15 Provider Statement: I spent 100% of the Face to Face Visit with the patient with greater than 50% spent counseling the patient and coordination of care.
[2023-09-30 12:33] VITALS: BP 133/84; O2SAT 98
== END 2023-09-30 09:25 | disposition home or self-care (01) ==
LOC: SC 09:24
PROVIDERS: ATTEND Internal Medicine Pulmonary Disease
DX: G47.33 Obstructive sleep apnea (adult) (pediatric) (principal); E66.9 Obesity, unspecified; Z68.32 Body mass index [BMI] 32.0-32.9, adult
CPT/HCPCS: 99212; G0463